=== PATIENT | female | born 1945 ===

== ENCOUNTER 2019-02-01 07:00 | Inpatient (IN) | payer OTHER ==
[2019-02-01] MEDS ORDERED: COZAAR100 MG PO (08:25)
[2019-02-08] MEDS ORDERED: ENDOCET 5-3251 EACH PO (08:21)
[2019-02-08] MEDS ORDERED: INTEGRA PLUS C1 EACH PO (08:21)
[2019-02-08] MEDS ORDERED: BACTRIM DS TAB1 EACH PO (08:21)
[2019-02-08] MEDS ORDERED: ECOTRIN81 MG PO (08:21)
== END 2019-02-08 11:08 | disposition home or self-care (01) | DRG 483 ==
LOC: O/R 07:00 → EDBD 02-07 07:00 → SURH 02-07 07:00 → O/R 02-07 09:52 → SURH 02-07 09:52
PROVIDERS: ADMIT Orthopaedic Surgery Sports Medicine
PROC: 0LN10ZZ Release Right Shoulder Tendon, Open Approach (ICD-10-PCS; 2019-02-07)
PROC: 0RRJ0JZ Replacement of Right Shoulder Joint with Synthetic Substitute, Open Approach (ICD-10-PCS; principal; 2019-02-07 14:30)
DX: M19.011 Primary osteoarthritis, right shoulder (principal); M75.01 Adhesive capsulitis of right shoulder; I10 Essential (primary) hypertension